=== PATIENT | male | born 1990 | race Caucasian/White ===

== ENCOUNTER 2016-08-22 17:00 | Emergency (ER) | payer OTHER ==
[~2016-08-22] VITALS: Ht 182.9 cm; Wt 95.5 kg
[~2016-08-22 17:00] MED LIST: MULT-1018 PO; OMEG300C3 PO; ZIT250 PO
[2016-08-22 17:12] VITALS: BP 134/83; PULSE 112; RESP 18; O2SAT 99
[2016-08-22 17:49] LABS: BASOPHILS % (AUTO) 0.1 % (0-3); EOSINOPHILS % (AUTO) 0.6 % (0-5); MONOCYTES % (AUTO) 9.3 % (4-12); Mean Corpuscular Hemoglobin 30.2 pg (27.0-35.0); Mean Corpuscular Volume 86.5 fL (81-100); NEUTROPHILS % (AUTO) 73.1 % (40-74); Platelet Count 212 bil/L (150-400)
--- NOTE | 2016-08-22 21:32 | ED.REPORT ---
HPI-Abd Pain M Under 40 Date of Service Aug 22, 2016 ED Provider: Enoc Yuan MD Patient is a 26 year old male who presents to the ED with RLQ abdominal pain that began yesterday. He states that the pain started in the parumbilical region , migrating to the RLQ. His pain waxes and wanes, often sharp, and it is worse with movement. His pain did not improve with Pepto-Bismol or passing stool. He went to Urgent Care today to discuss his symptoms, who believed his symptoms were due to a gastric ulcer. However, he developed a fever and diaphoresis once he returned home from Urgent Care. Patient is afebrile on arrival to the ED. Patient was able to eat some luisana earlier today, but his appetite has been decreased. He reports intermittent nausea. He denies any previous abdominal surgeries. Nursing Notes Stated Complaint: RT SIDE PAIN, FEVER Chief Complaint: Male Abdominal Pain Nursing Notes Reviewed: Yes Allergies: Coded Allergies: No Known Allergies (Verified Allergy, Unknown, 08/22/16) Scheduled Amoxicillin/Clav K 875-125 mg (Augmentin 875-125 mg) 1 Each Tablet 1 TABLET PO BID Azithromycin (Zithromax) 250 Mg Tablet 250 MG PO DAILY Metronidazole (Metronidazole) 500 Mg Tablet 500 MG PO TID Multivitamin (Multi Vitamin Daily) 1 Each Tablet 1 EACH PO DAILY Douds-3 Fatty Acids (Fish Oil) 300 Mg Capsule 300 MG PO daily Scheduled PRN oxyCODONE-Acetaminophen 5-325 mg (oxyCODONE-Acetaminophen 5-325 mg) 1 Each Tablet 1-2 TAB PO Q6H PRN PRN For Pain General Time Seen by MD: 21:30 Chief Complaint Abdominal pain Hx Obtained From: Patient Arrived By: Walk-in Sudden in Onset?: No Onset Occurred: Yesterday Symptom Duration: Since onset Location: : RLQ Quality: Painful Severity: Current: Moderate Severity: Maximum: Severe Recent Healthcare: No recent hospitalization, Recent doctor visit Similar Sx Previous: No Past Medical History Past Medical History No history of heart attack or stroke. Past Surgical History Denies Family History Father of DE at 50 years old. No siblings have heart problems. Denies history of aortic disection. Smoking History Current Every Day Smoker, Former Smoker, Current Some Day Smoker Social History Alcohol Use: "Social" Drug Use: Denies drug use Other Social History: Good social support, Local resident Ambulatory Status Independent Review of Systems Constitutional: Reports: Fever, Denies: Chills GI: Reports: Abdominal pain, Nausea Complete sys rev & neg: except as marked. Skin: Reports Diaphoresis Physical Exam Initial Vital Signs Vital Signs (First) Date Time Temp Pulse Resp B/P Pulse Ox O2 Delivery O2 Flow Rate FiO2 08/22/16 17:12 37 112 18 134/83 99 Room Air Initial VS: Reviewed, Vital signs abnormal Head / Eyes: Atraumatic, Normocephalic, PERRL ENT: Mucous membranes moist, Conjunctiva normal, No scleral icterus Neck: Supple, Full range of motion Extremities: Vascular intact, Neuro intact Skin: Warm, Dry, No cyanosis Neurologic: Alert, Oriented, Nonfocal Psychiatric: Mood/affect normal, Behavior normal, Normal thought content General/Constitutional: Awake, Alert, No acute distress, Well hydrated Respiratory / Chest: Breath sounds NL, Breath sounds = bilat, No respiratory distress, No rales, No rhonchi, No wheezing Cardiovascular: Heart rate NL, Regular rhythm, Heart sounds NL, No murmurs Abdomen: Soft Tenderness/Guarding/Rebound: Positive: Tender RLQ... (worse in the RLQ), Tender RUQ... Palpation to the left side of the abdomen causes referred pain to the right. Back: No midline vertebral tend, No CVA tenderness Interpretation & Diagnostics US APPENDIX CONCLUSION: No ultrasound evidence of appendicitis. Radiologist: Kun Miller MD 08/23/2016 - 12:19:47 AM [facility] Lab Results Interpretation Result Diagram: 08/22/16 1738 08/22/16 1738 Test 08/22/16 17:38 08/22/16 21:03 White Blood Count 7.7th/mm3 (3.8-10.1) Red Blood Count 5.03mil/mm3 (4.40-5.80) Hemoglobin 15.2g/dL (13.8-17.2) Hematocrit 43.5% (41.0-50.0) Mean Corpuscular Volume 86.5fL (81-100) Mean Corpuscular Hemoglobin 30.2pg (27.0-35.0) Mean Corpuscular Hemoglobin Concent 34.9% (32.0-37.0) Red Cell Distribution Width 12.2% (12.3-15.4) Platelet Count 212bil/L (150-400) Neutrophils (%) (Auto) 73.1% (40-74) Lymphocytes (%) (Auto) 16.8% (14-46) Monocytes (%) (Auto) 9.3% (4-12) Eosinophils (%) (Auto) 0.6% (0-5) Basophils (%) (Auto) 0.1% (0-3) Sodium Level 136mEq/L (134-144) Potassium Level 3.9mEq/L (3.5-5.2) Chloride Level 98mEq/L (97-108) Carbon Dioxide Level 28mmol/L (18-29) Blood Urea Nitrogen 14mg/dL (6-20) Creatinine 1.25mg/dL (0.76-1.27) Estimat Glomerular Filtration Rate 74mL/min (>59) Glucose Level 99mg/dL (60-99) Calcium Level 9.0mg/dL (8.5-10.1) Magnesium Level 2.0mg/dL (1.6-2.6) Total Bilirubin 0.7mg/dL (0.0-1.2) Aspartate Amino Transf (AST/SGOT) 21U/L (0-50) Alanine Aminotransferase (ALT/SGPT) 38U/L (0-44) Alkaline Phosphatase 58U/L (25-150) Total Protein 7.3g/dL (6.4-8.4) Albumin 4.3g/dL (3.4-5.0) Lipase 15U/L (13-60) Hold Davis Top Tube Received (Received) Hold Urine Received (Received) Lab values outside NL range: no clinical significance. CT Abd / Pelvis Interpretation CONCLUSION: Diverticulitis in the cecal region. No abscess, free air or other complication appreciated. Radiologist: Kun Miller MD 08/23/2016 - 12:32:26 AM PST Study type: Abdominal CT IV contrast Interpretation / Wet Read by: Interpret - Radiologist Re-Eval/Medical Decision Med Decision/Clinical Course 26-year-old male presents with classic story for appendicitis. Ultrasound shows no definite appendix, but there is some inflammatory process in that region. CT scan was done which showed diverticulitis. He was treated with first dose IV antibiotics and discharged home with Augmentin and metronidazole prescriptions. Source of Hx: Old records Re-Evaluation/Progress #1: Time of Eval: 00:03 Patient Status: Condition improved Re-Evaluation/Progress Note: Rechecked the patient. Informed him of the results of his ultrasound, which was inconclusive. He will receive a CT scan of his abdomen. Re-Evaluation/Progress #2: Time of Eval: 00:54 Patient Status: Condition improved Re-Evaluation/Progress Note: Informed the patient that he has diverticulitis per CT scan. He will need to be treated with antibiotics. Patient also had metallic foreign objects that appea to be BBs, with patient confirming that he played with BB guns as a child. Patient understands and agrees with the plan to be discharged home. Discharge instructions and follow-up discussed. All questions were addressed. Return to the ED warnings given. Counseled Regarding: Diagnosis, Lab results, Need for follow-up, When/why to return to ED Patient Discharge & Departure Primary Impression: Diverticulitis Diverticulitis site: unspecified part of intestinal tract Diverticulitis bleeding: without bleeding Diverticulitis complication: without perforation or abscess Qualified Code: K57.92 - Diverticulitis of intestine, part unspecified, without perforation or abscess without bleeding Disposition: Home Discharge Condition All VS Reviewed: Yes Condition: Stable Patient Instructions: Diverticulitis (ED) Additional Instructions: You CT scan shows diverticulitis, and infection of outpouchings on the colon. The appendix is normal. There are 2 metallic foreign bodies in the right iliopsoas muscle which could be explained by BB gun fights as a child. There is no acute inflammation associated with them. You received IV antibiotics in the emergency room: Unasyn and metronidazole. Continue oral Augmentin 875 mg twice daily and oral metronidazole 500 mg 3 times daily. Oxycodone/APAP 5/325, one to 2 pills every 4-6 hours as needed for pain. Follow-up with your regular physician as needed for persistent symptoms. Return to the emergency room if you vomit your medicines or keep the pain under control. Referrals: [facility] Scribe Attestation Portions of this note were transcribed by Michelle Patten. I, Dr. Yuan personally performed the history, physical exam and medical decision-making; I reviewed and confirmed the accuracy of the information in the transcribed note. Signed by: Sandra Mosley, 08/23/2016309 Enoc Yuan MD Aug 22, 2016 21:32 Michelle Patten Aug 22, 2016 21:41
[2016-08-22] MEDS ORDERED: 0.9% Sodium Chloride 1,000 ML IV ONE (21:37)
[2016-08-22] MEDS ORDERED: Ondansetron 2 mg/mL 2 mL Inj IV PRN (21:40)
[2016-08-22] MEDS: HYDROmorphone 0.5 mg/0.5 mL iSecure Syringe IVPUSH PRN ×3 (22:05→23:47)
[2016-08-23] MEDS ORDERED: metroNIDAZOLE Inj 500 MG in IV Premix 1 EACH IV ONE (01:00)
[2016-08-23] MEDS ORDERED: Ampicillin-Sulbactam Inj 3,000 MG in 0.9% Sodium Chloride 100 ML IV ONE (01:00)
[2016-08-23] MEDS ORDERED: OXYC1TAB24 PO (02:13)
[2016-08-23] MEDS ORDERED: AMOX-366 PO (02:13)
[2016-08-23] MEDS ORDERED: METR500T19 PO (02:13)
[2016-08-23 02:32] VITALS: BP 121/65; PULSE 78; RESP 18; O2SAT 96
--- NOTE | 2016-08-23 08:55 | DRSVH ---
PROCEDURE: US APPENDIX INDICATIONS: RLQ tenderness with rebound TECHNIQUE: Real-time focused scanning was performed of the abdomen with attention to the appendix, with image do cumentation. COMPARISON: None. FINDINGS: Limited evaluation of the right lower quadrant demonstrates no abnormalities. The appendix is not cl early identified sonographically. No abnormal fluid collections or masses seen. IMPRESSION: Appendix is not visualized and cannot be evaluated. Dictated by: Yan SMITH Interpreted: Samra Dickerson MD on 08/23/2016 at 8:54 Transcribed by: SAEID on 08/23/2016 at 8:55 Approved by: Samra Dickerson MD, PhD on 08/23/2016 at 17:14
--- NOTE | 2016-08-23 09:39 | DRSVH ---
PROCEDURE: CT ABDOMEN AND PELVIS WITH CONTRAST ([id number]) INDICATIONS: RLQ abd pain, US nondiagnostic TECHNIQUE: After the administration of intravenous contrast, 5 mm thick sections acquired from the diaphragm to the symphysis. 5 mm coronal and sagittal reformats were acquired. For radiation dose reduction, the following was used: automated exposure control, adjustment of mA and/or kV according to patient siz e. COMPARISON: None. FINDINGS: Image quality: Excellent. ABDOMEN: Lung bases: Lung bases are clear. Heart size is normal. Solid organs: Liver and spleen are normal in size and enhancement. Gallbladder is within normal lynn its. Biliary system is non dilated. Pancreas enhances normally. No adrenal nodules. Kidneys demon strate normal size and enhancement, without hydronephrosis. Peritoneum and bowel: Bowel loops demonstrate normal wall thickness and caliber. There is a small di verticulum arising from either the cecum or the terminal ileum. Inflammatory changes are noted adjace nt to the right lower quadrant diverticulum. The appendix is normal in appearance. No free fluid or a ir. Nodes and vessels: No retroperitoneal or mesenteric adenopathy by size criteria. Aorta and inferior vena cava are normal in size. Miscellaneous: No ventral hernias. Metallic foreign bodies noted adjacent to the right psoas muscle of uncertain etiology. PELVIS: Genitourinary: Bladder wall thickness is normal. Miscellaneous: No inguinal hernias or adenopathy. Bones: No suspicious bony lesions. No vertebral body compression fractures. IMPRESSION: 1. Inflammatory changes adjacent to a diverticulum involving either the cecum or the terminal ileum. Differential process includes colonic diverticulitis versus Meckel's diverticulitis. Recommend [facility] Meckel's diverticulum scan for definitive characterization. 2. Findings discussed with Dr. Yoni Arroyo on 08/23/2016 at 0933 hours. Dictated by: Samra Dickerson MD, PhD on 08/23/2016 at 9:13 Approved by: Samra Dickerson MD, PhD on 08/23/2016 at 9:37
== END 2016-08-23 02:28 | disposition home or self-care (01) ==
LOC: SED 17:00
DX: K57.92 Diverticulitis of intestine, part unspecified, without perforation or abscess without bleeding (principal); R50.9 Fever, unspecified; R61 Generalized hyperhidrosis; F17.200 Nicotine dependence, unspecified, uncomplicated
CPT/HCPCS: 36415; 74177; 76705; 80053; 83690; 83735; 85025; 96361; 96365; 96368; 96375; 96376; 99285; J0295; J1170; J2405; J3490; J7030; Q9967